=== PATIENT | male | born 1965 | race Caucasian/White ===

== ENCOUNTER 2022-02-25 20:23 | Observation (INO) | payer OTHER ==
[~2022-02-25] VITALS: Ht 182.9 cm; Wt 122.6 kg
[2022-02-25 20:51] LABS: HEMOGLOBIN 14.9 gm/dl (14.0-17.5); RED BLOOD COUNT 3.89 M/UL (4.20-5.50); WHITE BLOOD COUNT 5.5 K/UL (4.5-11.0)
[2022-02-26 06:34] LABS: RED BLOOD COUNT 3.69 M/UL (4.20-5.50); WHITE BLOOD COUNT 4.9 K/UL (4.5-11.0)
[2022-02-26] MEDS ORDERED: LORATADINE10 MG PO (12:16)
[2022-02-26] MEDS ORDERED: IPRAT-ALBUT 0.5-3 ML INH (12:16)
[2022-02-26] MEDS ORDERED: SPIRIVA RESPIMAT4 GM INH (12:17)
[2022-02-26] MEDS ORDERED: THEOPHYLLINE600 MG PO (12:17)
[2022-02-26] MEDS ORDERED: LISINOPRIL2.5 MG PO (12:17)
[2022-02-26] MEDS ORDERED: PROAIR HFA8.5 GM INH (12:19)
[2022-02-26] MEDS ORDERED: SYMBICORT 16010.2 GM INH (12:21)
[2022-02-26] MEDS ORDERED: REPATHA SY140 MG/1 M SQ (12:22)
[2022-02-26] MEDS ORDERED: GABAPENTIN300 MG PO (12:23)
[2022-02-26] MEDS ORDERED: COREG12.5 MG PO (12:32)
[2022-02-26] MEDS ORDERED: ASPIRIN EC81 MG PO (12:35)
[2022-02-26] MEDS ORDERED: TEMAZEPAM15 MG PO (12:36)
== END 2022-02-27 12:08 | disposition home or self-care (01) ==
LOC: ER1 20:23 → MED SURG 4 23:54 → CDU 23:54 → MED SURG 4 02-26 01:23
PROVIDERS: Physician Assistant; ADMIT Internal Medicine
DX: R07.89 Other chest pain (principal); I25.119 Atherosclerotic heart disease of native coronary artery with unspecified angina pectoris; R73.03 Prediabetes; I11.9 Hypertensive heart disease without heart failure; N39.0 Urinary tract infection, site not specified; F17.210 Nicotine dependence, cigarettes, uncomplicated; E78.5 Hyperlipidemia, unspecified; I25.2 Old myocardial infarction; E66.2 Morbid (severe) obesity with alveolar hypoventilation; Z68.36 Body mass index [BMI] 36.0-36.9, adult; Z79.82 Long term (current) use of aspirin; Z79.899 Other long term (current) drug therapy; Z85.51 Personal history of malignant neoplasm of bladder; Z88.8 Allergy status to other drugs, medicaments and biological substances
CPT/HCPCS: ECHO; 36415; 71045; 78452; 80053; 81001; 82550; 82553; 82962; 83036; 83735; 83880; 84100; 84439; 84443; 84484; 84550; 85025; 85610; 85730; 86140; 93005; 93017; 93306; 94660; 94760; 96372; 96374; 96376; 99285; A9502; G0378; J0696; J2785